=== PATIENT | female | born 1930 | race Caucasian/White ===

== ENCOUNTER 2018-09-13 12:06 | Inpatient (IN) | payer MEDICARE ==
[~2018-09-13] VITALS: Ht 165.1 cm; Wt 81.7 kg
[~2018-09-13 12:06] MED LIST: ASPI81EC; ATOR40TA; Bactrim Ds Tab1 EACH PO; CALCAVITD PO; CEPH250A PO; CLON.1; FURO40; HYDACE5 PO; LOSA25 PO; METO50ER; Norco 5-325 Ta1 EACH PO; OMEP10ER; ROSU10TA; RXCEPH500 PO; Robaxin500 MG PO; SIMV10 PO; VALS80; [UNRECOGNIZED DRUG - REMARK]
[2018-09-13 12:55] LABS: BASOPHILS ABSOLUTE AUTO 0.03 K/mm3 (0.00-0.23); BASOPHILS PERCENT AUTO 0 % (0-2); EOSINOPHILS PERCENT AUTO 0 % (0-6); Hemoglobin 13.6 g/dL (11.5-16.0); IMMATURE GRAN ABSOLUTE AUTO 0.31 K/mm3 (0.00-0.10); IMMATURE GRAN PERCENT AUTO 1 % (0-1); LYMPHOCYTES ABSOLUTE AUTO 0.35 K/mm3 (0.84-5.20); LYMPHOCYTES PERCENT AUTO 1 % (21-46); MONOCYTES ABSOLUTE AUTO 1.61 K/mm3 (0.16-1.47); MONOCYTES PERCENT AUTO 7 % (4-13); Mean Corpuscular HGB 29.3 pg (26.0-34.0); Mean Corpuscular HGB Conc 31.6 g/dL (31.5-36.5); Mean Corpuscular Volume 93 fL (80-100); Mean Platelet Volume 11.8 fL (9.1-12.4); NEUTROPHILS ABSOLUTE AUTO 22.24 K/mm3 (1.96-9.15); NEUTROPHILS PERCENT AUTO 91 % (41-73); Platelet Count 168 K/mm3 (150-400); RDW Coefficient Variation 13.3 % (11.7-14.2); RDW Standard Deviation 45.4 fL (35.1-46.3); Red Blood Cell Count 4.64 M/mm3 (3.80-5.20); White Blood Cell Count 24.54 K/mm3 (4.00-11.30)
[2018-09-13 13:12] LABS: Albumin, Blood 3.5 g/dL (3.4-5.0); Albumin/Globulin Ratio 0.7 (0.8-1.8); Bilirubin, Total 3.9 mg/dL (0.1-1.0); Bun/Creatinine Ratio 14.5 (12.0-20.0); Calcium, Blood 9.6 mg/dL (8.5-10.1); Creatinine, Blood 1.1 mg/dL (0.40-1.00); Potassium, Blood 3.3 mmol/L (3.5-5.5); Total Protein, Blood 8.5 g/dL (6.4-8.2)
[2018-09-13 14:11] LABS: Source, Urine Catheter
[2018-09-13 14:23] LABS: Bilirubin, Urine Neg (Neg); Blood, Urine 4+ (Neg); Glucose Qualitative, Urine 4+ (Neg); Ketones, Urine Neg (Neg); Leukocyte Esterase, Urine 1+ (Neg); Nitrite, Urine Pos (Neg); Protein, Urine 3+ (Neg); Urobilinogen, Urine 1+ (Normal)
[2018-09-13 14:42] LABS: Appearance, Urine Hazy (Clear); Color, Urine Yellow (P-Yellow)
[2018-09-13 14:43] LABS: Squamous Epithelial Cells Mod /hpf (Few)
[2018-09-13 14:44] LABS: Bacteria Many /hpf; Red Blood Cells, Urine Not Seen /hpf (0-2)
[2018-09-13] MEDS ORDERED: Lopressor 25 mg25 MG PO (15:38)
[2018-09-13] MEDS ORDERED: ALLO100 PO (15:40)
[2018-09-13] MEDS ORDERED: POTCHL10ER PO (15:41)
[2018-09-13] MEDS ORDERED: FURO20 PO (15:41)
--- NOTE | 2018-09-13 21:40 | NUR ---
RECIEVED REPORT FROM CLAUDIA, ED MEDICAL ILLUSTRATOR. AWAITING PT ARRIVAL TO SURGICAL FLOOR.
[2018-09-14 05:13] LABS: BASOPHILS ABSOLUTE AUTO 0.05 K/mm3 (0.00-0.23); BASOPHILS PERCENT AUTO 0 % (0-2); EOSINOPHILS PERCENT AUTO 0 % (0-6); Hematocrit 40.8 % (33.0-51.0); IMMATURE GRAN ABSOLUTE AUTO 0.44 K/mm3 (0.00-0.10); IMMATURE GRAN PERCENT AUTO 2 % (0-1); LYMPHOCYTES ABSOLUTE AUTO 0.58 K/mm3 (0.84-5.20); LYMPHOCYTES PERCENT AUTO 2 % (21-46); MONOCYTES ABSOLUTE AUTO 2.02 K/mm3 (0.16-1.47); MONOCYTES PERCENT AUTO 7 % (4-13); Mean Corpuscular HGB 29.4 pg (26.0-34.0); Mean Corpuscular HGB Conc 31.9 g/dL (31.5-36.5); Mean Corpuscular Volume 92 fL (80-100); Mean Platelet Volume 12.4 fL (9.1-12.4); NEUTROPHILS ABSOLUTE AUTO 24.64 K/mm3 (1.96-9.15); NEUTROPHILS PERCENT AUTO 89 % (41-73); Platelet Count 141 K/mm3 (150-400); RDW Coefficient Variation 13.5 % (11.7-14.2); RDW Standard Deviation 45.8 fL (35.1-46.3); Red Blood Cell Count 4.42 M/mm3 (3.80-5.20); White Blood Cell Count 27.73 K/mm3 (4.00-11.30)
[2018-09-14 05:27] LABS: International Normalized Ratio 1.28; Prothrombin Time Results 13.3 Sec (9.7-11.5)
[2018-09-14 05:36] LABS: Albumin, Blood 2.9 g/dL (3.4-5.0); Albumin/Globulin Ratio 0.7 (0.8-1.8); Bilirubin, Total 5.8 mg/dL (0.1-1.0); Creatinine, Blood 1.06 mg/dL (0.40-1.00); Globulin, Blood 4.3 g/dL (2.2-4.0); Potassium, Blood 3.6 mmol/L (3.5-5.5); Total Protein, Blood 7.2 g/dL (6.4-8.2)
--- NOTE | 2018-09-14 06:45 | NUR ---
SHIFT SUMMARY & ADMISSION NOTE: PT NEW ED ADMIT THIS SHIFT. PT TRANSFERS FROM [facility] TO BED VIA [facility]. PT C/O NAUSEA AND UPPER QUADRANT PAIN SINCE 09/13 @ 2100 AFTER EATING DINNER. PER CT, PT HAS 3MM GALLSTONE. PT NPO SINCE MIDNIGHT FOR IMPENDING LAP DENNIS TODAY. PT IS ALERT TO SELF, PLACE, EVENTS. SLOW TO RESPOND AND OFTEN HAS A DIFFICULT TIME FINDING WORDS. TELE IN PLACE; NSR @ 73 BPM c 1ST DEGREE BLOCK. ON ROOM AIR. PT C/O DIZZINESS UPON STANDING. DENIES N/V OR DIARRHEA. PT DENIES PAIN OR DISCOMFORT. ABDOMEN MILD DISTENTION. BLOOD SUGAR AC/HS PER ORDERS; SEE LABS. NS RUNNING @ 75 ML/HR. NO OTHER CHANGES TO REPORT. WILL CONT TO MONITOR AND PROVIDE CARE UNTIL PRESUMED BY ONCOMING RN.
--- NOTE | 2018-09-14 17:08 | NUR ---
COBRA TRANSFER REPORT CALLED TO [facility]. PT LEFT UNIT IN [facility] VIA TRANSPORT.
== END 2018-09-14 16:52 | disposition short-term general hospital (02) | DRG 445 ==
LOC: ER 12:06 → ERHOLD 17:57 → SURS 17:57
PROVIDERS: Emergency Medicine; ADMIT Family Medicine
DX: K80.50 Calculus of bile duct without cholangitis or cholecystitis without obstruction (principal); K80.10 Calculus of gallbladder with chronic cholecystitis without obstruction; E87.1 Hypo-osmolality and hyponatremia; K21.9 Gastro-esophageal reflux disease without esophagitis; M19.90 Unspecified osteoarthritis, unspecified site; I25.10 Atherosclerotic heart disease of native coronary artery without angina pectoris; E78.5 Hyperlipidemia, unspecified; N18.9 Chronic kidney disease, unspecified; I12.9 Hypertensive chronic kidney disease with stage 1 through stage 4 chronic kidney disease, or unspecified chronic kidney disease; E11.22 Type 2 diabetes mellitus with diabetic chronic kidney disease; E87.6 Hypokalemia; M10.9 Gout, unspecified; I25.2 Old myocardial infarction; Z87.891 Personal history of nicotine dependence; Z79.82 Long term (current) use of aspirin; Z79.899 Other long term (current) drug therapy
CPT/HCPCS: 36415; 71045; 74177; 80053; 81001; 82947; 83036; 83690; 84484; 85025; 85610; 85730; 87077; 87086; 87186; 93005; 93010; J0295; J1170; J2405; J2543; J7030; Q9967